=== PATIENT | female | born 1960 | race Caucasian/White ===

== ENCOUNTER 2023-04-22 05:17 | Observation (INO) ==
--- NOTE | 2023-03-28 13:20 | PAT Medication Instructions ---
Medication Instructions Date of Service March 28, 2023 Home Medications Medication Instructions Recorded albuterol sulfate 90 mcg/actuation 2 puff inhalation Q6H PRN 02/20/23 aerosol inhaler shortness of breath or wheezing #54 grams bupropion HCl 300 mg 24 hr tablet, 300 mg PO QAM #90 tabs 03/21/23 extended release (Wellbutrin XL) albuterol sulfate 2.5 mg/3 mL (0.083 %) solution for nebulization 2.5 mg inhalation Q4H PRN amiodarone 200 mg tablet 200 mg PO QAM fexofenadine 180 mg tablet 180 mg PO QAM multivitamin 1 tab PO QAM semaglutide (weight loss) 1 mg/0.5 mL subcutaneous pen injector 2 mg subcut Q7D albuterol sulfate 90 mcg/actuation aerosol inhaler 2 puff inhalation Q6H PRN bupropion HCl 300 mg 24 hr tablet, extended release (Wellbutrin XL) 300 mg PO QAM apixaban 5 mg tablet (Eliquis) 5 mg PO BID hydrochlorothiazide 12.5 mg tablet 12.5 mg PO QAM levothyroxine 50 mcg tablet 50 mcg PO QAM losartan 100 mg tablet 100 mg PO QAM metoprolol succinate 25 mg tablet,extended release 24 hr 25 mg PO QAM montelukast 10 mg tablet 10 mg PO QAM venlafaxine 150 mg capsule,extended release 24 hr 150 mg PO QAM STOP 7 days before surgery semaglutide (weight loss) 1 mg/0.5 mL subcutaneous pen injector 2 mg subcut Q7D ASK your prescriber and surgeon apixaban 5 mg tablet (Eliquis) 5 mg PO BID(in order for spinal or epidural anesthesia, Eliquis needs to be stopped 72 hours/3 days before surgery. Please check if okay with doctor that prescribes this to you) DO NOT take the morning of surgery fexofenadine 180 mg tablet 180 mg PO QAM multivitamin 1 tab PO QAM hydrochlorothiazide 12.5 mg tablet 12.5 mg PO QAM losartan 100 mg tablet 100 mg PO QAM Take morning of surgery With a small sip of water, OTHERWISE NOTHING TO EAT OR DRINK AFTER MIDNIGHT: albuterol sulfate 2.5 mg/3 mL (0.083 %) solution for nebulization 2.5 mg inhalation Q4H PRN(if needed) amiodarone 200 mg tablet 200 mg PO QAM albuterol sulfate 90 mcg/actuation aerosol inhaler 2 puff inhalation Q6H PRN(use if needed; please bring with you to hospital day of surgery if possible) bupropion HCl 300 mg 24 hr tablet, extended release (Wellbutrin XL) 300 mg PO QAM levothyroxine 50 mcg tablet 50 mcg PO QAM metoprolol succinate 25 mg tablet,extended release 24 hr 25 mg PO QAM montelukast 10 mg tablet 10 mg PO QAM venlafaxine 150 mg capsule,extended release 24 hr 150 mg PO QAM Take evening before surgery albuterol sulfate 2.5 mg/3 mL (0.083 %) solution for nebulization 2.5 mg inhalation Q4H PRN(if needed) albuterol sulfate 90 mcg/actuation aerosol inhaler 2 puff inhalation Q6H PRN(if needed) Other Notes If you have any questions please call us at [phone] or [phone] or [phone] or [phone]
--- NOTE | 2023-04-03 11:36 | Anesthesiology Consultation ---
Date of Service April 03, 2023 Assessment & Plan (1) Encounter for pre-operative examination: allergic to perfumes, lotions, scents This was marked on OR sheet and Elena with OR made aware. - cardiology 05/21/22 S: "...pAF/flutter 2014 at pre-op ECG...on amiodarone since 01/2015 was on Xarelto stopped back in 04/2019 due to epistaxis...NICM by echo in 11/2014 EF 30-35% probably tachycardia mediated; normalized by recent echo 08/2015...stable from a cardiac standpoint...follow up 1 year..." - pulmonology 05/15/22 [facility]: "...moderate persistent asthma, morbid obesity...DAVID on CPAP and atrial fibrillation...get spirometry in 6 minutes walk priori to next visit. discontinue Wixela. Continue prn albuterol...follow up in 1 year..." - Outpatient joint assessment: Patient is currently scheduled for inpatient pathway. If re-evaluated and patient/surgeon requests outpatient pathway, patient is not recommended candidate for outpatient joint program from anesthesia standpoint. Patient expresses preference to remain overnight. Chart Review Chart Review: Acceptable Risk for Surgery and Patient seen in Pre Admission Testing Teaching & Discussion Pre-Anesthesia Teaching/Discussion Notes: Instructed NPO after midnight before surgery, except medications with 15 cc of water. Medication instructions provided according to the PAT guidelines. History Surgery Operation Date: 04/22/23 07:00 Proposed Procedures p Left Total Knee Arthroplasty - Cholo Sam, DO Height/Weight Height: 5 ft 6 in Weight: 116.3 kg Allergies Allergy/AdvReac Type Severity Reaction Status Date / Time Iodinated Contrast Media Allergy Hives Verified 03/28/23 08:18 [Iodinated Contrast- Oral and IV Dye] Medications Home Medications Medication Instructions Recorded Confirmed Last Taken albuterol sulfate 2.5 mg/3 mL 2.5 mg inhalation Q4H PRN 07/30/19 03/28/23 Unknown (0.083 %) solution for nebulization Shortness Of Breath amiodarone 200 mg tablet 200 mg PO QAM 07/30/19 03/28/23 Unknown fexofenadine 180 mg tablet 180 mg PO QAM 07/30/19 03/28/23 Unknown multivitamin 1 tab PO QAM 07/30/19 03/28/23 Unknown semaglutide (weight loss) 1 mg/0.5 2 mg subcut Q7D weight loss 07/24/22 03/28/23 Unknown mL subcutaneous pen injector albuterol sulfate 90 mcg/actuation 2 puff inhalation Q6H PRN 02/20/23 03/28/23 Unknown aerosol inhaler shortness of breath or wheezing #54 grams bupropion HCl 300 mg 24 hr tablet, 300 mg PO QAM #90 tabs 03/21/23 03/28/23 Unknown extended release (Wellbutrin XL) apixaban 5 mg tablet (Eliquis) 5 mg PO BID 03/28/23 03/28/23 Unknown hydrochlorothiazide 12.5 mg tablet 12.5 mg PO QAM 03/28/23 03/28/23 Unknown levothyroxine 50 mcg tablet 50 mcg PO QAM 03/28/23 03/28/23 Unknown losartan 100 mg tablet 100 mg PO QAM 03/28/23 03/28/23 Unknown metoprolol succinate 25 mg 25 mg PO QAM 03/28/23 03/28/23 Unknown tablet,extended release 24 hr montelukast 10 mg tablet 10 mg PO QAM 03/28/23 03/28/23 Unknown venlafaxine 150 mg 150 mg PO QAM 03/28/23 03/28/23 Unknown capsule,extended release 24 hr Past Medical History Medical History (Updated 04/03/23 @ 12:23 by Evelia Jasso PA-C) AF (paroxysmal atrial fibrillation) currently on eliquis>f/u dr. declan arreola, [facility] Allergic rhinitis Allergy to perfume asthma exacerbations Asthma controlled, stable per pt; last rescue inhaler use several months ago Atrial flutter, paroxysmal CKD (chronic kidney disease) stage 3, GFR 30-59 ml/min Depression GERD (gastroesophageal reflux disease) controlled, stable per pt Hiatal hernia HTN (hypertension) controlled, stable per pt Hypothyroidism Morbid obesity Nonischemic cardiomyopathy EF 60% on 03/2021 echo Obstructive sleep apnea on CPAP cpap compliant Sinus bradycardia Patient denies h/o stroke, seizures, heart attack, DM, blood clots or blood transfusions. Exercise / Class Metabolic Activity II 4-5 Yardwork/Stairs/Walk up hill (denies chest discomfort or shortness of breath with 1 FOS) Past Family History Family History Father Alcohol abuse AAA (abdominal aortic aneurysm) Bipolar disorder Brother Alcohol abuse Hypertension Drug abuse Sister Alcohol abuse Mother Heart disease Stroke Diabetes Myocardial infarction Aunt Breast cancer Past Surgical History Surgical History History of bladder surgery History of hysterectomy Hx laparoscopic cholecystectomy Hx of Achilles tendon repair 2012-rt. Hx of colonoscopy w/precancerous polyps removed Hx of endoscopic retrograde cholangiopancreatography w/lap bhargav, stent placed and later removed Past Anesthesia History No Hx of Anesthesia Complications and No Family Hx of Anesthesia Complications History of PONV No Hx of PONV and No Hx of Motion Sickness Social History Smoking Status: Never smoker Do You Dip or Chew Tobacco: No Hx Alcohol Use: Yes alcohol intake frequency: other Alcohol Intake Frequency Comment: maybe once every 2 years Hx Substance Use: No substance use type: does not use Review of Systems Patient denies chest pain, shortness of breath, dyspnea on exertion, fever, chills, cough, wheezing, or palpitations. Physical Exam Vital Signs Vitals BP 119/83 P 58 TEMP 97.8 SP02 98% on RA RESP 17 Physical Patient resting comfortably in chair in NAD, alert and oriented, responding appropriately throughout visit Full cervical extension range of motion without pain TMD 3.5 finger breadths Mallampati Score 2 Dentition: several caps/crowns, denies chipped or loose teeth, implants or bridges Lungs: normal respiratory effort. Good air movement, clear throughout to auscultation, no adventitious breath sounds Cardiac: regular rate and rhythm, no murmurs noted Carotid arteries: negative bruit bilat Lab Results Anesthesia Preop Results Results Anesthesia Widget: WBC 4.76 K/ul (4.8-10.8) L 04/03/23 Hgb 13.1 g/dl (12.0-16.0) 04/03/23 Hct 39.5 % (37.0-47.0) 04/03/23 Plt 274 K/uL (130-400) 04/03/23 Na 141 mmol/L (136-145) 04/03/23 K 3.9 mmol/L (3.5-5.1) 04/03/23 Cl 104 mmol/L (98-107) 04/03/23 CO2 32 mmol/L (21-32) 04/03/23 BUN 16 mg/dl (6-23) 04/03/23 Creat 1.03 mg/dl (0.6-1.2) 04/03/23 Glucose Level 83 mg/dl (70-99(Fasting)) 04/03/23 PT 10.9 Seconds (9.0-12.0) 04/03/23 PTT 30.1 Seconds (21.0-31.0) 04/03/23 INR 1.0 (0.9-1.1) 04/03/23 TSH 1.290 uIu/ml (0.300-4.500) 04/03/23 Blood Type O Positive 04/03/23 Antibody Screen NEGATIVE 04/03/23 Testing Electrocardiogram Date: 05/21/22 NSR, rate 60 bpm Chest X-Ray Date: 04/03/23 No acute chest disease Echocardiogram Date: 03/23/21 EF 60% Normal LV wall motion No significant valvular pathology Non-dilated cardiac chambers
[2023-04-22] MEDS ORDERED: LR 500ML BOLUS, THEN 15ML/HR IV SCH (06:00)
[2023-04-22] MEDS ORDERED: ORTHO JOINT MIX INFIL SCH (06:00)
[2023-04-22] MEDS ORDERED: ACETAMINOPHEN 500 MG TAB PO SCH (06:00)
[2023-04-22] MEDS ORDERED: TRANEXAMIC ACID 1,000 MG **IV Pre-op IV SCH (06:00)
[2023-04-22] MEDS ORDERED: FAMOTIDINE 20 MG TAB PO SCH (06:00)
[2023-04-22] MEDS ORDERED: ceFAZolin 2000MG 2,000 MG/15 ML SYR IV SCH (06:00)
[2023-04-22] MEDS ORDERED: dexAMETHasone 4 MG TAB PO SCH (06:00)
[2023-04-22] MEDS ORDERED: GABAPENTIN 600 MG DOSE PO SCH (06:00)
[2023-04-22] MEDS ORDERED: LR 60ML/HR IV SCH (06:00)
[2023-04-22] MEDS ORDERED: TRANEXAMIC ACID 1,000 MG **IV Intra-op IV SCH (06:00)
[2023-04-22] MEDS ORDERED: BUPIVACAINE 0.25% PF 30 ML VIAL ONE (06:14)
[2023-04-22] MEDS ORDERED: BUPIVACAINE 0.5 % 5 MG/1 ML PF 10ML VIAL ONE (06:14)
--- NOTE | 2023-04-22 06:15 | History & Physical Bridge Note ---
Date of Service April 22, 2023 History & Physical Bridge Note I have examined the patient, reviewed the History & Physical and in the interval since the performance of the History & Physical I have noted the following changes of clinical significance: no changes noted
[2023-04-22] MEDS ORDERED: MIDAZOLAM HCL 1 MG/ML 2ML VIAL ONE ×2 (06:37→07:12)
[2023-04-22] MEDS ORDERED: LIDOCAINE 2% 2 ML VIAL/AMP(20MG/ML) INFIL ONE (06:37)
[2023-04-22] MEDS ORDERED: PROPOFOL IV EMULSION 10 MG/ML 20 ML VIAL IV ONE (06:37)
[2023-04-22] MEDS ORDERED: fentaNYL citrate PF 100 MCG/2 ML VIAL ONE (06:37)
[2023-04-22] MEDS ORDERED: ORTHO JOINT ANESTHETIC ONE (06:50)
[2023-04-22] MEDS ORDERED: ePHEDrine sulfate 50 MG/ML AMP IV PRN (07:01)
[2023-04-22] MEDS ORDERED: ONDANSETRON INJ 2 MG/ML 2 ML VIAL IV PRN ×2 (07:01→10:01)
[2023-04-22] MEDS ORDERED: fentaNYL citrate PF 100 MCG/2 ML VIAL IV PRN (07:01)
[2023-04-22] MEDS ORDERED: ATROPINE SULFATE 0.1 MG/ML 10ML SYR IV PRN (07:01)
--- NOTE | 2023-04-22 08:24 | Operative Report ---
PG Post Operative Report Pre & Post Diagnosis Operation Date: 04/22/23 07:00 Pre-Op Diagnosis: Osteoarthritis of Left Knee Postop diagnosis: Osteoarthritis of left knee I identified the patient and participated in the time-out.: Yes Procedure Operation Date: 04/22/23 07:00 Actual Procedures p Left Total Knee Arthroplasty(Left) - Cholo Sam DO Surgeon Cholo Sam DO [employer] Representative Cholo Allen PA-C Estimated Blood Loss 30 Findings Consistent with Post-Op Diagnosis Specimens Left femoral tibial plateau Description of Procedure Implants used: I used a Chidi Persona total knee arthroplasty system with a size 8 standard femur, E tibia, 31 oval patella, and a size 11 medial congruent polyethylene bearing. All components were cemented in place with Biomet cement. Bibi arrived [facility] for the above procedure. She was seen in the preoperative holding area and the operative extremity was identified and signed. She was given a preoperative antibiotic, TXA, a spinal anesthetic and an adductor nerve block. She was taken back to the operating room and laid on the table in supine position. She was given basic sedation. The operative knee was then prepped and draped in sterile fashion. A timeout was done, and the patient and the operative extremity was properly identified. A midline incision was made directly over the patella. Dissection was taken down to the extensor mechanism. A midvastus arthrotomy was used. The medial retinaculum was released and the fat pad was mostly excised. The knee was flexed and the ACL, PCL, and meniscus were removed. A drill was sent down the center of the femoral canal followed by an intramedullary rik. Off that rik a distal femoral cutting block was placed. 9 mm was resected off the distal femur at 5 of valgus. A posterior referencing AP sizing guide was then placed on the distal femur. The femur measured to be a size 8. 2 drill holes were placed in 3 of external rotation. A 4-in-1 cutting block was then impacted into place. Anterior, posterior, and chamfer cuts were then made. The proximal tibia was then exposed. An external tibial alignment guide was placed. A tibial cut guide was then anchored in place and the proximal tibia was then resected. The posterior aspect of the knee was then opened up and any additional meniscus fragments and osteophytes were removed. The tibia measured to be a size E. The tibial plate was then placed in the appropriate rotation and the tibia was drilled and punched. Trial components were then placed. I used a size 11 medial congruent polyethylene insert. The knee was brought through a full range of motion and felt to be stable. The peg holes for the femoral component were then drilled. The patella was then everted and 9 mm was resected off the posterior aspect of the patella. The patella measured to be a size 31 oval. 3 peg holes were then drilled. A trial patella was placed. The knee was once again brought through a full range of motion and felt to be stable. Trial components were then removed. The surrounding soft tissues were injected with 100 cc of an orthopedic pain control cocktail. All components were then cemented into place with Biomet cement. The final polyethylene insert was then snapped into place. Once cement was dry the tourniquet was deflated. Hemo stasis was obtained. The patella tendon was peeling off the tibial tuberosity about 50%. I placed 2 Arthrex knotless fiber tacks in the tuberosity and passed them through the tendon insertion. Through a tension slide technique I was able to tie the tendon back down. The fixation was very secure. A dilute betadyne lavage was then done for 3 minutes. The joint was then irrigated with normal rose ine solution. The midvastus arthrotomy was then closed with #1 Vicryl suture. The skin was closed with 2-0 Vicryl, 3-0V lock suture, and elvia. A soft compressive dressing was placed. She was then transferred to a hospital bed and taken to the postanesthesia care unit in stable condition. She tolerated the procedure well. Cholo Allen PA-C, was present for the entire procedure. He was critical for patient positioning, prepping, draping, retraction exposure, wound closure and application of sterile dressing. I attest to the content of the Intraoperative Record and any orders documented therein. Any exceptions are noted below.
[2023-04-22] MEDS ORDERED: ePHEDrine sulfate 50 MG/5 ML SYR ONE (08:44)
--- NOTE | 2023-04-22 09:25 | XRay Report ---
LEFT KNEE 2 VIEWS History: Left total knee arthroplasty. Degenerative arthritis. Postop. FINDINGS: The patient is status post a left total knee arthroplasty. The hardware is intact. No fract ure or dislocation. Skin elvia are in place. IMPRESSION: Left total knee arthroplasty. No evidence for hardware complication. ACT 112: Negative or not required by law. Electronically signed by: Deep Rivas M.D. 04/22/2023 9:24 AM
[2023-04-22] MEDS ORDERED: bisacodyL 10 MG SUPP PR PRN (10:01)
[2023-04-22] MEDS ORDERED: oxyCODONE HCL IR 5 MG TAB (IMMEDIATE RELEASE) PO PRN (10:01)
[2023-04-22] MEDS ORDERED: METOCLOPRAMIDE HCL INJ 5 MG/ML 2 ML VIAL IV PRN (10:01)
[2023-04-22] MEDS ORDERED: ALBUTEROL HFA 8 GM INHALER INH PRN (10:01)
[2023-04-22] MEDS ORDERED: NALOXONE HCL 0.4 MG/1 ML VIAL/CARP IV PRN (10:01)
[2023-04-22] MEDS ORDERED: HYDROmorphone INJ 0.5 MG/0.5 ML SYR IV PRN (10:01)
[2023-04-22] MEDS ORDERED: ALBUTEROL 0.083% NEBU SOLN 3 ML VIAL INH PRN (10:01)
[2023-04-22] MEDS ORDERED: MAGNESIUM HYDROXIDE SUSP 30 ML UDC PO PRN (10:01)
[2023-04-22] MEDS: FEXOFENADINE HCL 180 MG TAB PO SCH (10:43)
[2023-04-22] MEDS: DOCUSATE SODIUM 100 MG CAP PO SCH ×2 (10:43→20:02)
[2023-04-22] MEDS: SODIUM CHLORIDE 0.9% 1,000 ML IV SCH ×2 (10:43→20:22)
[2023-04-22] MEDS: LOSARTAN POTASSIUM 50 MG TAB PO SCH (10:44)
[2023-04-22] MEDS: hydroCHLOROthiazide 25 MG TAB PO SCH (10:44)
[2023-04-22] MEDS: MULTIVITAMIN TAB PO SCH (10:45)
[2023-04-22] MEDS: VENLAFAXINE HCL XR 150 MG CAPXR PO SCH (10:51)
[2023-04-22] MEDS: KETOROLAC 30 MG/ML VIAL IV SCH ×3 (10:52→22:29)
[2023-04-22] MEDS: ACETAMINOPHEN 500 MG TAB PO SCH ×2 (13:59→22:29)
[2023-04-22] MEDS: ceFAZolin 2000MG 2,000 MG/15 ML SYR IV SCH ×2 (14:00→22:29)
--- NOTE | 2023-04-22 14:19 | Anesthesiology Progress Note ---
Date of Service April 22, 2023 Anesthesia Post Procedure Vital Signs Vital Signs: Temp Pulse Pulse Resp BP Pulse Ox O2 Del Method 04/22/23 13:11 37.1 C 72 16 154/73 H 98 Room Air 04/22/23 12:09 37.1 C 67 16 124/74 98 Room Air 04/22/23 11:11 36.6 C 65 18 115/60 99 Room Air 04/22/23 10:46 36.4 C L 58 L 18 116/75 95 Room Air 04/22/23 10:10 36.4 C L 56 L 18 102/67 98 Room Air 04/22/23 09:45 36.2 C L 56 L 16 115/63 96 Room Air 04/22/23 09:35 58 L 14 106/75 95 Room Air 04/22/23 09:05 70 16 111/63 97 Room Air 04/22/23 09:25 58 L 19 111/62 96 Room Air 04/22/23 09:15 60 15 109/63 98 Room Air 04/22/23 08:55 58 L 14 99/52 L 100 Oxymask 04/22/23 08:49 36.2 C L 58 L 15 109/58 L 100 Oxymask 04/22/23 05:49 36.7 C 61 20 129/69 100 Room Air O2 Flow Rate 04/22/23 13:11 04/22/23 12:09 04/22/23 11:11 04/22/23 10:46 04/22/23 10:10 04/22/23 09:45 04/22/23 09:35 04/22/23 09:05 04/22/23 09:25 04/22/23 09:15 04/22/23 08:55 4 04/22/23 08:49 6 04/22/23 05:49 Transfer of Care Handoff Completed per policy Notes Mental Status: alert / awake / arousable and participated in evaluation Patient Amnestic to Procedure: Yes Nausea / Vomiting: adequately controlled Pain: adequately controlled Airway Patency, RR, SpO2: stable & adequate BP & HR: stable & adequate Hydration State: stable & adequate Neuraxial Anesthesia: was administered and sensory block is resolving Anesthetic Complications: no major complications apparent and Pt Satisfied with anesthetic care
[2023-04-22] MEDS ORDERED: SENNA 8.6 MG TAB PO SCH (21:00)
[2023-04-23] MEDS: ACETAMINOPHEN 500 MG TAB PO SCH (05:48)
[2023-04-23] MEDS: KETOROLAC 30 MG/ML VIAL IV SCH (05:48)
[2023-04-23] MEDS ORDERED: LEVOTHYROXINE SODIUM 50 MCG TABLET PO SCH (06:30)
--- NOTE | 2023-04-23 07:12 | Discharge Summary ---
Date of Service April 23, 2023 Principal Diagnosis Same as "Discharge Diagnosis" noted below under Discharge Instructions. Discharge Exam On physical examination of left knee, the dressing is clean and dry. His leg is out in full extension. She has active dorsiflexion plantarflexion of her left ankle.. Discharge Data Procedures Performed Operation Date: 04/22/23 07:00 Actual Procedures p Left Total Knee Arthroplasty(Left) - Cholo Sam DO Ordered Studies 04/22/23 05:00 US - OR guided needle placemen Routine Hospital Course (1) Status post left knee replacement: On April 22, 2023 Bibi arrived at [facility] and underwent a left knee replacement without complication. Postoperatively she was started on Eliquis for DVT prophylaxis and transferred to the general orthopedic floor. Her hospital course was uneventful. On postop day #1, her vital signs were stable and her pain was well controlled. She was able to participate well with physical therapy doing ambulation and range of motion exercises. She was then discharged home. She will follow with orthopedics in 2 weeks. PG Care Time/CCT Total # of Minutes Spent Total Time Spent with Patient: Total time spent is greater than 50% in coordination of care (as documented) at patient's floor/unit and/or counseling patient: Discharge Plan Discharge Items Patient Disposition: Home - Home Health Services Reason For Visit: DKD Knee Left Discharge Diagnosis: Left knee replacement Activity: Per Instructions section Non-emergency contact: Surgeon Call non-emergency contact if: your wound has increased redness and your wound has increased drainage Follow-up/Referrals: Joseph Grace DO [Primary Care Provider] - Diet: Regular Addtl Attending Provider Instructions: Activity and Therapy Recommendations: * If you are using [facility] then therapy will be provided at your home until they feel you have accomplished all of your goals. * If you are using [facility] then Physical Therapy will be provided until they feel you are ready to start Outpatient Physical Therapy. * If you are not using home therapy then Outpatient Physical Therapy should start about 3-5 days from your day of surgery. Therapy will last about 6-10 weeks * It is important not to put a pillow under your knee when you are relaxing or sleeping. It is just as important to make sure you are getting your knee perfectly straight as it is to regain your knee bend. * You were shown a series of exercises in the hospital. Do these exercises three times each day including the exercises you were shown in physical therapy. * Get up and walk several times each day. For the first four weeks, try not to stand or walk for more than one hour at a time. If you do stand or walk for more than one hour, you will not hurt anything, but your leg will likely swell. * As you feel comfortable, you may change from the walker or crutches to a cane and then to independent walking. Medications: * Narcotic You will likely be sent home from the hospital with a prescription for the narcotic pain medication that worked best throughout your stay. * Eliquis continue your Eliquis as instructed. * Other medications may be prescribed for specific circumstances. If you have any questions, please call the office at . * Resume previous home medications unless otherwise instructed TEDs/Elastic Stockings: The white elastic stockings help limit swelling and prevent blood clots from forming in your legs.~ The more you wear them, the more they work. Wear them for six weeks. Dressing Care: The dressing can be changed after physical therapy on postop day #1. Daily dry dressing changes for a few days, especially if the incision is still draining some. If the incision is not draining then you may leave the elvia open to air. If there is a little bit of drainage or if the elvia are getting stuck on your clothing then cover the incision with a dry dressing. The elvia will be removed at your 2 week follow-up appointment. Showering: You may shower 5 days from the day of surgery as long as the incision is no longer draining. You may shower with the elvia exposed. Let soapy water run over the elvia and pat them dry. Do not scrub or soak the incision. Things To Watch For: * Drainage from the incision site that occurs more than one week after your surgery. * Increased redness at the incision site. * Fever above 102 degrees Fahrenheit. * Unusual chest pain or shortness of breath. * Call [facility] at with any of the above problems Follow-Up Visit: Follow-up with Dr. Sam's PA (Cholo Allen) 2-3 weeks after your day of surgery. He will remove your elvia and answer any questions. If you have any additional questions or concerns, Dr Sam is usually in the office at the same time and will be available An appointment was probably scheduled when you signed-up for surgery in the office. If you have any questions call Office Instructions: More detailed instructions as well as Frequently Asked Questions were provided in a folder by our office when you signed-up for surgery. Please review these instructions when you get home. If you have any further questions or concerns, please feel free to call the office at [phone] Pending Studies at Discharge: No Stand-Alone Forms: My [facility], Smoking Cessation Medications and DC Order Prescriptions: New oxycodone 5 mg Tablet 5 mg PO Q4H PRN (Reason: pain) Qty: 30 0RF Continued albuterol sulfate 90 mcg/actuation HFA aerosol inhaler 2 puff INH Q6H PRN (Reason: shortness of breath or wheezing) Qty: 54 1RF bupropion HCl [Wellbutrin XL] 300 mg tablet extended release 24 hr 300 mg PO QAM Qty: 90 0RF albuterol sulfate 2.5 mg /3 mL (0.083 %) solution for nebulization 2.5 mg INH Q4H PRN (Reason: Shortness Of Breath) Patient Comments: has not used for a very long time. amiodarone 200 mg tablet 200 mg PO QAM fexofenadine 180 mg tablet 180 mg PO QAM multivitamin tablet 1 tab PO QAM semaglutide (weight loss) 1 mg/0.5 mL pen injector 2 mg subcut Q7D Patient Comments: Takes Semaglutide Fridays- last dose will be 04/12/23, surgery 04/22/23 (aware to hold 7 days before surgery) Eliquis 5 mg Tablet 5 mg PO BID venlafaxine 150 mg capsule,extended release 24hr 150 mg PO QAM levothyroxine 50 mcg tablet 50 mcg PO QAM montelukast 10 mg tablet 10 mg PO QAM metoprolol succinate 25 mg tablet extended release 24 hr 25 mg PO QAM losartan 100 mg tablet 100 mg PO QAM hydrochlorothiazide 12.5 mg tablet 12.5 mg PO QAM Admission Data Admit Date/Time: 04/22/23 08:49 Attending Provider: Cholo Sam Admit Provider: Cholo Sam Primary Care Provider: Joseph Grace
--- NOTE | 2023-04-23 07:12 | Orthopedic Progress Note ---
Date of Service April 23, 2023 Assessment & Plan (1) Status post left knee replacement: Overall she is doing very well. She is not having much pain in the left knee. She will be seen by physical therapy today for ambulation and range of motion exercises. She is on Eliquis for DVT prophylaxis. She can be discharged home later today. She will follow-up with orthopedics in 2 weeks. Sergio Mtz was seen and examined at bedside this morning. Overall she is doing very well. She is not having much pain in the left knee. She has been up and ambulating to the bathroom. She has no complaints.. Review of Systems All systems reviewed & are unremarkable except as noted in HPI & below. Physical Exam On physical examination of left knee, the dressing is clean and dry. His leg is out in full extension. She has active dorsiflexion plantarflexion of her left ankle.. Results & Data Results & Data Laboratory Results . Diagnostic Findings Postoperative x-rays of the left knee show the prosthesis to be in anatomic alignment without any evidence of fracture, dislocation, or loosening. PG Care Time/CCT Total # of Minutes Spent Total Time Spent with Patient: Total time spent is greater than 50% in coordination of care (as documented) at patient's floor/unit and/or counseling patient: Coding Level of Care Code 68584 Post Operative Follow-Up Diagnoses Status post left knee replacement Z96.652
[2023-04-23] MEDS: FEXOFENADINE HCL 180 MG TAB PO SCH (07:14)
[2023-04-23] MEDS: MULTIVITAMIN TAB PO SCH (07:15)
[2023-04-23] MEDS: DOCUSATE SODIUM 100 MG CAP PO SCH (07:15)
[2023-04-23] MEDS: VENLAFAXINE HCL XR 150 MG CAPXR PO SCH (07:16)
[2023-04-23] MEDS: LOSARTAN POTASSIUM 50 MG TAB PO SCH (07:16)
[2023-04-23] MEDS: hydroCHLOROthiazide 25 MG TAB PO SCH (07:17)
[2023-04-23] MEDS ORDERED: dexAMETHasone 4 MG TAB PO SCH (08:00)
[2023-04-23] MEDS ORDERED: APIXABAN 5 MG TABLET PO SCH (08:00)
[2023-04-23] MEDS ORDERED: METOPROLOL SUCC 25MG EXT REL TAB PO SCH (09:00)
[2023-04-23] MEDS ORDERED: buPROPion XL 300 MG TABCR PO SCH (09:00)
[2023-04-23] MEDS ORDERED: AMIODARONE 200 MG TAB PO SCH (09:00)
[2023-04-23] MEDS ORDERED: MONTELUKAST SODIUM 10 MG TABLET PO SCH (09:00)
== END 2023-04-23 11:45 | disposition home health service (06) ==
LOC: ASU 05:17 → 3E 05:17

== ENCOUNTER 2023-07-12 08:35 | Observation (INO) ==
--- NOTE | 2023-07-01 10:24 | Anesthesiology Consultation ---
Date of Service July 01, 2023 Assessment & Plan (1) Encounter for pre-operative examination: Plan - Ozempic instructions: Patient instructed naomi POSEY RN to stop 7 days prior to surgery. - cardiology office visit 05/20/23 [facility]: "...QTc is good today and she is tolerating amio...EP f/u 1 in year..." - s/p left TKA 04/22/23 SAB at L4-L5 1 attempt + PNB. - Outpatient joint assessment: Patient is currently scheduled for inpatient pathway. If re-evaluated and patient/surgeon requests outpatient pathway, patient is not recommended candidate for outpatient joint program from anesthesia standpoint. Patient expresses preference to remain overnight. - Per elevator mechanic apprentice on 07/01/2023: No known infectious disease contacts, current infectious disease symptoms in past 10 days or COVID positive test result in the past 90 days. Chart Review Chart Review: Patient NOT seen in Pre Admission Testing History Surgery Operation Date: 07/12/23 09:10 Proposed Procedures p Right Total Knee Arthroplasty - Cholo Sam, Height/Weight Height: 5 ft 6 in Weight: 113.398 kg Allergies Allergy/AdvReac Type Severity Reaction Status Date / Time Iodinated Contrast Media Allergy Intermediate Hives Verified 07/01/23 09:48 [Iodinated Contrast- Oral and IV Dye] Medications Home Medications Medication Instructions Recorded Confirmed Last Taken albuterol sulfate 2.5 mg/3 mL 2.5 mg inhalation Q4H PRN 07/30/19 07/01/23 12/21/19 (0.083 %) solution for nebulization Shortness Of Breath amiodarone 200 mg tablet 200 mg PO QAM 07/30/19 07/01/23 04/22/23 04:00 fexofenadine 180 mg tablet 180 mg PO QAM 07/30/19 07/01/23 04/21/23 08:00 multivitamin 1 tab PO QAM 07/30/19 07/01/23 04/21/23 08:00 semaglutide (weight loss) 1 mg/0.5 2 mg subcut Q7D weight loss 07/24/22 07/01/23 04/12/23 mL subcutaneous pen injector albuterol sulfate 90 mcg/actuation 2 puff inhalation Q6H PRN 02/20/23 07/01/23 02/12/23 aerosol inhaler shortness of breath or wheezing #54 grams bupropion HCl 300 mg 24 hr tablet, 300 mg PO QAM #90 tabs 03/21/23 07/01/23 04/22/23 04:00 extended release (Wellbutrin XL) apixaban 5 mg tablet (Eliquis) 5 mg PO BID 03/28/23 07/01/23 04/18/23 hydrochlorothiazide 12.5 mg tablet 12.5 mg PO QAM 03/28/23 07/01/23 04/21/23 08:00 levothyroxine 50 mcg tablet 50 mcg PO QAM 03/28/23 07/01/23 04/21/23 23:00 metoprolol succinate 25 mg 25 mg PO QAM 03/28/23 07/01/23 04/22/23 04:00 tablet,extended release 24 hr montelukast 10 mg tablet 10 mg PO QAM 03/28/23 07/01/23 04/22/23 04:00 venlafaxine 150 mg 150 mg PO QAM 03/28/23 07/01/23 04/21/23 08:00 capsule,extended release 24 hr losartan 100 mg tablet 100 mg PO QAM #90 tabs 06/10/23 07/01/23 Unknown Past Medical History Medical History CKD (chronic kidney disease) stage 3, GFR 30-59 ml/min Hiatal hernia GERD (gastroesophageal reflux disease) Allergy to perfume asthma exacerbations Nonischemic cardiomyopathy Hypothyroidism AF (paroxysmal atrial fibrillation) currently on eliquis>f/u dr. declan arreola Allergic rhinitis Asthma controlled, stable per pt; last rescue inhaler use several months ago Atrial flutter, paroxysmal Depression HTN (hypertension) controlled, stable per pt Obstructive sleep apnea on CPAP has not been using cpap for over 1 month>lost 90lbs since sleep study Sinus bradycardia Past Family History Family History (Updated 07/01/23 @ 09:55 by Roma Dixon RN) Father Alcohol abuse AAA (abdominal aortic aneurysm) Bipolar disorder Brother Drug abuse Alcohol abuse Hypertension Sister Alcohol abuse Mother Diabetes Heart disease Myocardial infarction Stroke Aunt Breast cancer Other No family history of adverse response to anesthesia Past Surgical History Surgical History (Updated 07/01/23 @ 09:55 by Roma Dixon RN) [place] teeth removed Hx of total knee replacement L knee. 04/22/23 Hx laparoscopic cholecystectomy Hx of endoscopic retrograde cholangiopancreatography w/lap bhargav, stent placed and later removed Hx of colonoscopy w/precancerous polyps removed Hx of Achilles tendon repair 2013-rt. History of hysterectomy History of bladder surgery Social History Smoking Status: Never smoker Do You Dip or Chew Tobacco: No Hx Alcohol Use: Yes alcohol intake frequency: holidays/special occasions only Hx Substance Use: No substance use type: does not use Lab Results Anesthesia Preop Results Results Anesthesia Widget: WBC 5.02 K/ul (4.8-10.8) 06/13/23 Hgb 13.6 g/dl (12.0-16.0) 06/13/23 Hct 41.3 % (37.0-47.0) 06/13/23 Plt 335 K/uL (130-400) 06/13/23 Na 140 mmol/L (136-145) 06/13/23 K 4.2 mmol/L (3.5-5.1) 06/13/23 Cl 101 mmol/L (98-107) 06/13/23 CO2 32 mmol/L (21-32) 06/13/23 BUN 16 mg/dl (6-23) 06/13/23 Creat 1.06 mg/dl (0.6-1.2) 06/13/23 Glucose Level 89 mg/dl (70-99(Fasting)) 06/13/23 PT 10.6 Seconds (9.0-12.0) 06/13/23 PTT 33.3 Seconds (21.0-31.0) H 06/13/23 INR 1.0 (0.9-1.1) 06/13/23 TSH 1.872 uIu/ml (0.300-4.500) 06/13/23 Blood Type O Positive 06/13/23 Antibody Screen NEGATIVE 06/13/23 Testing Electrocardiogram Date: 05/20/23 NSR, rate [address] abnormality Chest X-Ray Date: 04/03/23 No acute chest disease Echocardiogram Date: 03/23/21 EF 60% Normal LV wall motion No significant valvular pathology Non-dilated cardiac chambers
--- NOTE | 2023-07-11 06:38 | History & Physical Report ---
Date of Service July 11, 2023 Assessment & Plan (1) Osteoarthritis of right knee: We will proceed with a right total knee arthroplasty. Postoperatively she will be started on Eliquis for DVT prophylaxis and kept overnight in the hospital for postop medical management. She plans to go to outpatient physical therapy at [facility] upon discharge. History of Present Illness Chief Complaint: Osteoarthritis of the right knee. Primary Care Provider: Joseph GraceDO Mtz is a pleasant 63-year-old female who is been doing with chronic increasing right knee pain. X-rays and clinical examination have been diagnostic for advanced osteoarthritis of the right knee. After failed conservative treatment, she has elected proceed with a right total knee arthrop lasty. I did a left knee replacement on her in April 2023 and she is done very well with that.. Allergies Allergy/AdvReac Type Severity Reaction Status Date / Time Iodinated Contrast Media Allergy Intermediate Hives Verified 07/01/23 09:48 [Iodinated Contrast- Oral and IV Dye] Home Medications Medication Instructions Recorded Confirmed Type albuterol sulfate 2.5 mg/3 mL 2.5 mg inhalation Q4H PRN 07/30/19 07/01/23 History (0.083 %) solution for nebulization Shortness Of Breath amiodarone 200 mg tablet 200 mg PO QAM 07/30/19 07/01/23 History fexofenadine 180 mg tablet 180 mg PO QAM 07/30/19 07/01/23 History multivitamin 1 tab PO QAM 07/30/19 07/01/23 History semaglutide (weight loss) 1 mg/0.5 2 mg subcut Q7D weight loss 07/24/22 07/01/23 History mL subcutaneous pen injector albuterol sulfate 90 mcg/actuation 2 puff inhalation Q6H PRN 02/20/23 07/01/23 Rx aerosol inhaler shortness of breath or wheezing #54 grams apixaban 5 mg tablet (Eliquis) 5 mg PO BID 03/28/23 07/01/23 History hydrochlorothiazide 12.5 mg tablet 12.5 mg PO QAM 03/28/23 07/01/23 History levothyroxine 50 mcg tablet 50 mcg PO QAM 03/28/23 07/01/23 History metoprolol succinate 25 mg 25 mg PO QAM 03/28/23 07/01/23 History tablet,extended release 24 hr montelukast 10 mg tablet 10 mg PO QAM 03/28/23 07/01/23 History losartan 100 mg tablet 100 mg PO QAM #90 tabs 06/10/23 07/01/23 Rx bupropion HCl 300 mg 24 hr tablet, 300 mg PO QAM #90 tabs 07/09/23 Rx extended release (Wellbutrin XL) venlafaxine 150 mg 150 mg PO QAM #90 caps 07/09/23 Rx capsule,extended release 24 hr Past Med/Surg History Medical History CKD (chronic kidney disease) stage 3, GFR 30-59 ml/min Hiatal hernia GERD (gastroesophageal reflux disease) Allergy to perfume asthma exacerbations Nonischemic cardiomyopathy Hypothyroidism AF (paroxysmal atrial fibrillation) currently on eliquis>f/u dr. declan arreola Allergic rhinitis Asthma controlled, stable per pt; last rescue inhaler use several months ago Atrial flutter, paroxysmal Depression HTN (hypertension) controlled, stable per pt Obstructive sleep apnea on CPAP has not been using cpap for over 1 month>lost 90lbs since sleep study Sinus bradycardia Surgical History [place] teeth removed Hx of total knee replacement L knee. 04/22/23 Hx laparoscopic cholecystectomy Hx of endoscopic retrograde cholangiopancreatography w/lap bhargav, stent placed and later removed Hx of colonoscopy w/precancerous polyps removed Hx of Achilles tendon repair 2012-rt. History of hysterectomy History of bladder surgery Family History Father Alcohol abuse AAA (abdominal aortic aneurysm) Bipolar disorder Brother Drug abuse Alcohol abuse Hypertension Sister Alcohol abuse Mother Diabetes Heart disease Myocardial infarction Stroke Aunt Breast cancer Other No family history of adverse response to anesthesia Social History Smoking Status: Never smoker Second Hand Exposure: Yes (hx as child); Do You Dip or Chew Tobacco: No; Hx Alcohol Use: Yes Hx Substance Use: No Preferred Language: Spanish Communication Ability: Effective Container Packer Operator Required: No Beliefs That Will Affect Care: None marital status: Current Living Situation: Spouse Current Living Situation Comment: current occupational status: retired and disabled Feels Safe at Home: Yes Safety Concerns: Feels Safe At This Time Dental Care, Regularly: Yes Physical Activity Frequency: Does not Exercise Seatbelt Use: always Sunscreen Use: Yes Assistive Devices: Glasses and Walker Review of Systems All systems reviewed & are unremarkable except as noted in HPI & below. Physical Exam On physical examination the right knee, she has slight varus deformity. She has range of motion from 5 to 115 degrees. No gross instability. Pain over the distal femoral condyles.. Constitutional WD/WN, vitals as above Eyes PERRL, conjunctivae normal, anicteric sclerae ENMT external ear and nose normal, oropharynx normal Neck trachea midline, no thyromegaly Respiratory normal respiratory effort Cardiovascular RRR, no murmur, no edema Gastrointestinal (Abdomen) normal bowel sounds, soft, nontender, no hepatosplenomegaly Psychiatric A+Ox3, euthymic affect Results & Data Results & Data Laboratory Results . Diagnostic Findings X-rays of the right knee show advanced osteoarthritis with joint space narrowing, osteophyte formation, and [id number] tubulation.. PG Care Time/CCT Total # of Minutes Spent Total Time Spent with Patient: Total time spent is greater than 50% in coordination of care (as documented) at patient's floor/unit and/or counseling patient: Coding Level of Care Code None Diagnoses Osteoarthritis of right knee M17.11
[~2023-07-12 08:35] MED LIST: ACETAMINOPHEN 500 MG TAB PO SCH; BUPIVACAINE 0.25% PF 30 ML VIAL ONE; BUPIVACAINE 0.5 % 5 MG/1 ML PF 10ML VIAL ONE; FAMOTIDINE 20 MG TAB PO SCH; GABAPENTIN 600 MG DOSE PO SCH; LR 500ML BOLUS, THEN 15ML/HR IV SCH; LR 60ML/HR IV SCH; MIDAZOLAM HCL 1 MG/ML 2ML VIAL ONE; ORTHO JOINT MIX INFIL SCH; TRANEXAMIC ACID 1,000 MG **IV Intra-op IV SCH; TRANEXAMIC ACID 1,000 MG **IV Pre-op IV SCH; ceFAZolin 2000MG 2,000 MG/15 ML SYR IV SCH; dexAMETHasone 4 MG TAB PO SCH
--- NOTE | 2023-07-12 09:14 | History & Physical Bridge Note ---
Date of Service July 12, 2023 History & Physical Bridge Note I have examined the patient, reviewed the History & Physical and in the interval since the performance of the History & Physical I have noted the following changes of clinical significance: no changes noted
[2023-07-12] MEDS ORDERED: ORTHO JOINT ANESTHETIC ONE (09:44)
[2023-07-12] MEDS ORDERED: fentaNYL citrate PF 100 MCG/2 ML VIAL IV PRN (09:49)
[2023-07-12] MEDS ORDERED: ePHEDrine sulfate 50 MG/ML AMP IV PRN (09:49)
[2023-07-12] MEDS ORDERED: ATROPINE SULFATE 0.1 MG/ML 10ML SYR IV PRN (09:49)
[2023-07-12] MEDS ORDERED: ONDANSETRON INJ 2 MG/ML 2 ML VIAL IV PRN ×2 (09:49→14:32)
[2023-07-12] MEDS ORDERED: ONDANSETRON INJ 2 MG/ML 2 ML VIAL ONE (10:39)
[2023-07-12] MEDS ORDERED: PROPOFOL IV EMULSION 10 MG/ML 20 ML VIAL IV ONE ×3 (10:39→11:47)
[2023-07-12] MEDS ORDERED: GLYCOPYRROLATE 0.2 MG/ML VIAL ONE (11:09)
[2023-07-12] MEDS ORDERED: ePHEDrine sulfate 50 MG/5 ML SYR ONE (11:09)
[2023-07-12] MEDS ORDERED: MIDAZOLAM HCL 1 MG/ML 2ML VIAL ONE (11:11)
--- NOTE | 2023-07-12 12:02 | Operative Report ---
PG Post Operative Report Pre & Post Diagnosis Operation Date: 07/12/23 10:00 Pre-Op Diagnosis: Degenerative Joint Disease Right Knee Post-Op Diagnosis: Degenerative Joint Disease Right Knee I identified the patient and participated in the time-out.: Yes Procedure Operation Date: 07/12/23 10:00 Actual Procedures p Right Total Knee Arthroplasty(Right) - Cholo Sam DO Surgeon Cholo Sam DO Land Reclamation Specialist Cholo Allen PA-C, Xander Tamayo PA-C Estimated Blood Loss 30 Findings Consistent with Post-Op Diagnosis Specimens Right femoral and tibial bone Description of Procedure Implants used: I used a Chidi Persona total knee arthroplasty system with a size 8 narrow femur, E tibia, 31 oval patella, and a size 11 medial congruent polyethylene bearing. All components were cemented in place with Biomet cement. Bibi arrived [facility] for the above procedure. She was seen in the preoperative holding area and the operative extremity was identified and signed. She was given a preoperative antibiotic, TXA, a spinal anesthetic and an adductor nerve block. She was taken back to the operating room and laid on the table in supine position. She was given basic sedation. The operative knee was then prepped and draped in sterile fashion. A timeout was done, and the patient and the operative extremity was properly identified. A midline incision was made directly over the patella. Dissection was taken down to the extensor mechanism. A midvastus arthrotomy was used. The medial retinaculum was released and the fat pad was mostly excised. The knee was flexed and the ACL, PCL, and meniscus were removed. A drill was sent down the center of the femoral canal followed by an intramedul cassy rik. Off that rik a distal femoral cutting block was placed. 9 mm was resected off the distal femur at 5 of valgus. A posterior referencing AP sizing guide was then placed on the distal femur. The femur measured to be a size 8. 2 drill holes were placed in 3 of external rotation. A 4-in-1 cutting block was then impacted into place. Anterior, posterior, and chamfer cuts were then made. The proximal tibia was then exposed. An external tibial alignment guide was placed. A tibial cut guide was then anchored in place and the proximal tibia was then resected. The posterior aspect of the knee was then opened up and any additional meniscus fragments and osteophytes were removed. The tibia measured to be a size E. The tibial plate was then placed in the appropriate rotation and the tibia was drilled and punched. Trial components were then placed. I used a size 11 medial congruent polyethylene insert. The knee was brought through a full range of motion and felt to be stable. The peg holes for the femoral component were then drilled. The patella was then everted and 9 mm was resected off the posterior aspect of the patella. The patella measured to be a size 31 oval. 3 peg holes were then drilled. A trial patella was placed. The knee was once again brought through a full range of motion and felt to be stable. Trial components were then removed. The surrounding soft tissues were injected with 100 cc of an orthopedic pain control cocktail. All components were then cemented into place with Biomet cement. The final polyethylene insert was then snapped into place. Once cement was dry the tourniquet was deflated. Hemostasis was obtained. A dilute betadyne lavage was then done for 3 minutes. The joint was then irrigated with normal saline solution. The midvastus arthrotomy was then closed with #1 Vicryl suture. The skin was closed with 2-0 Vicryl, 3-0V lock suture, and elvia. A soft compressive dressing was placed. She was then transferred to a hospital bed and taken to the postanesthesia care unit in stable condition. She tolerated the procedure well. Cholo Allen PA-C, and Xander Tamayo PA-C were present for the entire procedure. They were critical for patient positioning, prepping, draping, retraction exposure, wound closure and application of sterile dressing. I attest to the content of the Intraoperative Record and any orders documented therein. Any exceptions are noted below.
--- NOTE | 2023-07-12 12:44 | XRay Report ---
TWO VIEWS RIGHT KNEE CLINICAL HISTORY: Postoperative examination. FINDINGS: AP and crosstable lateral portable views of the right knee are obtained. A right knee arthr oplasty is in near anatomic alignment. There has been undersurface remodeling of the patella. No acut e fracture is seen. There are expected postoperative changes around the knee including skin clips, so ft tissue edema, and subcutaneous gas. IMPRESSION: Expected postoperative changes status post right knee arthroplasty. No acute fracture is seen. ACT 112: Negative or not required by law. Electronically signed by: Young Casarez M.D. 07/12/2023 12:43 PM
[2023-07-12] MEDS ORDERED: MAGNESIUM HYDROXIDE SUSP 30 ML UDC PO PRN (14:32)
[2023-07-12] MEDS ORDERED: METOCLOPRAMIDE HCL INJ 5 MG/ML 2 ML VIAL IV PRN (14:32)
[2023-07-12] MEDS ORDERED: bisacodyL 10 MG SUPP PR PRN (14:32)
[2023-07-12] MEDS ORDERED: ALBUTEROL 0.083% NEBU SOLN 3 ML VIAL INH PRN (14:32)
[2023-07-12] MEDS ORDERED: NALOXONE HCL 0.4 MG/1 ML VIAL/CARP IV PRN (14:32)
[2023-07-12] MEDS ORDERED: oxyCODONE HCL IR 5 MG TAB (IMMEDIATE RELEASE) PO PRN (14:32)
[2023-07-12] MEDS ORDERED: ALBUTEROL HFA 8 GM INHALER INH PRN (14:32)
[2023-07-12] MEDS ORDERED: HYDROmorphone INJ 0.5 MG/0.5 ML SYR IV PRN (14:32)
--- NOTE | 2023-07-12 14:42 | Anesthesiology Progress Note ---
Date of Service July 12, 2023 Anesthesia Post Procedure Vital Signs Vital Signs: Temp Pulse Pulse Resp BP Pulse Ox O2 Del Method 07/12/23 14:00 58 L 12 118/82 98 Room Air 07/12/23 13:45 55 L 16 118/66 100 Nasal Cannula 07/12/23 13:30 54 L 15 120/64 100 Room Air 07/12/23 13:15 55 L 20 118/63 98 Room Air 07/12/23 13:00 36.4 C L 60 17 121/60 97 Room Air 07/12/23 12:50 61 23 104/70 100 Room Air 07/12/23 12:40 62 15 110/68 100 Room Air 07/12/23 12:30 67 15 111/65 100 Oxymask 07/12/23 12:20 36.2 C L 67 13 93/52 L 97 Oxymask 07/12/23 09:11 36.8 C 63 20 154/78 H 97 Room Air O2 Flow Rate 07/12/23 14:00 2 07/12/23 13:45 2 07/12/23 13:30 07/12/23 13:15 07/12/23 13:00 07/12/23 12:50 07/12/23 12:40 07/12/23 12:30 3 07/12/23 12:20 6 07/12/23 09:11 Transfer of Care Handoff Completed per policy Notes Mental Status: alert / awake / arousable Patient Amnestic to Procedure: Yes Nausea / Vomiting: adequately controlled Pain: adequately controlled Airway Patency, RR, SpO2: stable & adequate BP & HR: stable & adequate Hydration State: stable & adequate Neuraxial Anesthesia: was administered and sensory block is resolving Anesthetic Complications: no major complications apparent and Pt Satisfied with anesthetic care
[2023-07-12] MEDS: SODIUM CHLORIDE 0.9% 1,000 ML IV SCH (15:18)
[2023-07-12] MEDS: KETOROLAC 30 MG/ML VIAL IV SCH ×2 (15:19→20:12)
[2023-07-12] MEDS: ACETAMINOPHEN 500 MG TAB PO SCH ×2 (15:19→21:30)
[2023-07-12] MEDS: ceFAZolin 2000MG 2,000 MG/15 ML SYR IV SCH (18:16)
[2023-07-12] MEDS: DOCUSATE SODIUM 100 MG CAP PO SCH (20:12)
[2023-07-12] MEDS ORDERED: SENNA 8.6 MG TAB PO SCH (21:00)
[2023-07-13 00:01] VITALS: RESP 18
[2023-07-13] MEDS: SODIUM CHLORIDE 0.9% 1,000 ML IV SCH (00:45)
[2023-07-13] MEDS: ceFAZolin 2000MG 2,000 MG/15 ML SYR IV SCH (02:28)
[2023-07-13] MEDS: KETOROLAC 30 MG/ML VIAL IV SCH ×2 (02:29→09:15)
[2023-07-13] MEDS: ACETAMINOPHEN 500 MG TAB PO SCH (05:50)
[2023-07-13] MEDS ORDERED: LEVOTHYROXINE SODIUM 50 MCG TABLET PO SCH (06:30)
[2023-07-13 07:18] VITALS: PULSE 60; TEMP 97.7; O2SAT 95
[2023-07-13] MEDS ORDERED: dexAMETHasone 4 MG TAB PO SCH (08:00)
--- NOTE | 2023-07-13 08:39 | Orthopedic Progress Note ---
Date of Service July 13, 2023 Assessment & Plan (1) Status post right knee replacement: Overall she is doing very well. She is not in much pain in the right knee. She will be seen by physical therapy today for ambulation and range of motion exercises. She is on Eliquis for DVT prophylaxis. She can be discharged home later today. She will follow-up with orthopedics in 2 weeks. Sergio Mtz was seen and examined at bedside this morning. Overall she is doing fairly well. She is not having much pain in the right knee. She has been up and ambulating to the bathroom. She has no complaints.. Review of Systems All systems reviewed & are unremarkable except as noted in HPI & below. Physical Exam On physical examination of the right knee, the dressing is clean and dry. Her leg is out full extension. She has active dorsiflexion plantarflexion of her right ankle.. Results & Data Results & Data Laboratory Results . Diagnostic Findings Postoperative x-rays of the right knee show the prosthesis to be in anatomic alignment without any evidence of fracture complication, or loosening.. PG Care Time/CCT Total # of Minutes Spent Total Time Spent with Patient: Total time spent is greater than 50% in coordination of care (as documented) at patient's floor/unit and/or counseling patient: Coding Level of Care Code 29390 Post Operative Follow-Up Diagnoses Status post right knee replacement Z96.651
--- NOTE | 2023-07-13 08:40 | Discharge Summary ---
Date of Service July 13, 2023 Admission HPI (Per Admitting) Bibi is a pleasant 63-year-old female who is been doing with chronic increasing right knee pain. X-rays and clinical examination have been diagnostic for advanced osteoarthritis of the right knee. After failed conservative treatment, she has elected proceed with a right total knee arthroplasty. I did a left knee replacement on her in April 2023 and she is done very well with that.. Admission Exam (Per Admitting) On physical examination the right knee, she has slight varus deformity. She has range of motion from 5 to 115 degrees. No gross instability. Pain over the distal femoral condyles.. Principal Diagnosis Same as "Discharge Diagnosis" noted below under Discharge Instructions. Discharge Exam On physical examination of the right knee, the dressing is clean and dry. Her leg is out full extension. She has active dorsiflexion plantarflexion of her right ankle.. Discharge Data Procedures Performed Operation Date: 07/12/23 10:00 Actual Procedures p Right Total Knee Arthroplasty(Right) - Cholo Sam DO Ordered Studies 07/12/23 05:00 US - OR guided needle placemen Routine Hospital Course (1) Status post right knee replacement: On July 12, 2023 Bibi arrived at [facility] and underwent a right knee replaced without complication. She had a spinal anesthetic. Postoperatively she was started on Eliquis for DVT prophylaxis and transferred to the general orthopedic floors. Her hospital course was uneventful. On postop day #1, her vital signs were stable and her pain was well controlled. She was able to participate well with physical therapy doing ambulation and range of motion exercises. She was then discharged home. She will follow-up with orthopedics in 2 weeks. PG Care Time/CCT Total # of Minutes Spent Total Time Spent with Patient: Total time spent is greater than 50% in coordination of care (as documented) at patient's floor/unit and/or counseling patient: Discharge Plan Discharge Items Patient Disposition: Home - Home Health Services Reason For Visit: Degenerative Joint Disease Right Knee Discharge Diagnosis: Right knee replacement Activity: Per Instructions section Non-emergency contact: Surgeon Call non-emergency contact if: your wound has increased redness and your wound has increased drainage Follow-up/Referrals: Joseph Grace DO [Primary Care Provider] - Diet: Regular Addtl Attending Provider Instructions: Activity and Therapy Recommendations: * If you are using [facility] then therapy will be provided at your home until they feel you have accomplished all of your goals. * If you are using [facility] then Physical Therapy will be provided until they feel you are ready to start Outpatient Physical Therapy. * If you are not using home therapy then Outpatient Physical Therapy should start about 3-5 days from your day of surgery. Therapy will last about 6-10 weeks * It is important not to put a pillow under your knee when you are relaxing or sleeping. It is just as important to make sure you are getting your knee perfectly straight as it is to regain your knee bend. * You were shown a series of exercises in the hospital. Do these exercises three times each day including the exercises you were shown in physical therapy. * Get up and walk several times each day. For the first four weeks, try not to stand or walk for more than one hour at a time. If you do stand or walk for more than one hour, you will not hurt anything, but your leg will likely swell. * As you feel comfortable, you may change from the walker or crutches to a cane and then to independent walking. Medications: * Narcotic You will likely be sent home from the hospital with a prescription for the narcotic pain medication that worked best throughout your stay. * Cefadroxil -take the antibiotic twice a day for 10 days to help prevent infection. * Eliquis -continue taking your Eliquis as prescribed. * Other medications may be prescribed for specific circumstances. If you have any questions, please call the office at . * Resume previous home medications unless otherwise instructed TEDs/Elastic Stockings: The white elastic stockings help limit swelling and prevent blood clots from forming in your legs.~ The more you wear them, the more they work. Wear them f or six weeks. Dressing Care: The dressing can be changed after physical therapy on postop day #1. Daily dry dressing changes for a few days, especially if the incision is still draining some. If the incision is not draining then you may leave the elvia open to air. If there is a little bit of drainage or if the elvia are getting stuck on your clothing then cover the incision with a dry dressing. The elvia will be removed at your 2 week follow-up appointment. Showering: You may shower 5 days from the day of surgery as long as the incision is no longer draining. You may shower with the elvia exposed. Let soapy water run over the elvia and pat them dry. Do not scrub or soak the incision. Things To Watch For: * Drainage from the incision site that occurs more than one week after your surgery. * Increased redness at the incision site. * Fever above 102 degrees Fahrenheit. * Unusual chest pain or shortness of breath. * Call [facility] at with any of the above problems Follow-Up Visit: Follow-up with Dr. Sam's PA (Cholo Allen) 2-3 weeks after your day of surgery. He will remove your elvia and answer any questions. If you have any additional questions or concerns, Dr Sam is usually in the office at the same time and will be available An appointment was probably scheduled when you signed-up for surgery in the office. If you have any questions call Office Instructions: More detailed instructions as well as Frequently Asked Questions were provided in a folder by our office when you signed-up for surgery. Please review these instructions when you get home. If you have any further questions or concerns, please feel free to call the office at [phone] Pending Studies at Discharge: No Stand-Alone Forms: [facility] Medications and DC Order Prescriptions: New oxycodone 5 mg Tablet 5 mg PO Q4H PRN (Reason: pain) Qty: 30 0RF cefadroxil 500 mg capsule 500 mg PO BID 10 Days Qty: 20 0RF Continued albuterol sulfate 90 mcg/actuation HFA aerosol inhaler 2 puff INH Q6H PRN (Reason: shortness of breath or wheezing) Qty: 54 1RF losartan 100 mg tablet 100 mg PO QAM Qty: 90 3RF venlafaxine 150 mg capsule,extended release 24hr 150 mg PO QAM Qty: 90 0RF bupropion HCl [Wellbutrin XL] 300 mg tablet extended release 24 hr 300 mg PO QAM Qty: 90 0RF albuterol sulfate 2.5 mg /3 mL (0.083 %) solution for nebulization 2.5 mg INH Q4H PRN (Reason: Shortness Of Breath) Patient Comments: has not used for a very long time. amiodarone 200 mg tablet 200 mg PO QAM fexofenadine 180 mg tablet 180 mg PO QAM multivitamin tablet 1 tab PO QAM semaglutide (weight loss) 1 mg/0.5 mL pen injector 2 mg subcut Q7D Patient Comments: Takes Semaglutide Fridays-last dose will be 07/05/23 Eliquis 5 mg Tablet 5 mg PO BID levothyroxine 50 mcg tablet 50 mcg PO QAM montelukast 10 mg tablet 10 mg PO QAM metoprolol succinate 25 mg tablet extended release 24 hr 25 mg PO QAM hydrochlorothiazide 12.5 mg tablet 12.5 mg PO QAM Admission Data Admit Date/Time: 07/12/23 12:12 Attending Provider: Cholo Sam Admit Provider: Cholo Sam Primary Care Provider: Joseph Grace
[2023-07-13] MEDS ORDERED: MULTIVITAMIN TAB PO SCH (09:00)
[2023-07-13] MEDS ORDERED: LOSARTAN POTASSIUM 50 MG TAB PO SCH (09:00)
[2023-07-13] MEDS ORDERED: FEXOFENADINE HCL 180 MG TAB PO SCH (09:00)
[2023-07-13] MEDS ORDERED: METOPROLOL SUCC 25MG EXT REL TAB PO SCH (09:00)
[2023-07-13] MEDS ORDERED: hydroCHLOROthiazide 25 MG TAB PO SCH (09:00)
[2023-07-13] MEDS ORDERED: buPROPion XL 300 MG TABCR PO SCH (09:00)
[2023-07-13] MEDS ORDERED: MONTELUKAST SODIUM 10 MG TABLET PO SCH (09:00)
[2023-07-13] MEDS ORDERED: AMIODARONE 200 MG TAB PO SCH (09:00)
[2023-07-13] MEDS ORDERED: VENLAFAXINE HCL XR 150 MG CAPXR PO SCH (09:00)
[2023-07-13] MEDS ORDERED: APIXABAN 5 MG TABLET PO SCH (09:00)
[2023-07-13] MEDS: DOCUSATE SODIUM 100 MG CAP PO SCH (09:15)
[2023-07-13 13:18] VITALS: BP 114/62
== END 2023-07-13 13:40 | disposition home health service (06) ==
LOC: 3N 08:35 → ASU 08:35
DX: Z91.041 Radiographic dye allergy status; M17.11 Unilateral primary osteoarthritis, right knee; E03.9 Hypothyroidism, unspecified; K21.9 Gastro-esophageal reflux disease without esophagitis; I48.91 Unspecified atrial fibrillation; Z79.890 Hormone replacement therapy; G47.33 Obstructive sleep apnea (adult) (pediatric); I12.9 Hypertensive chronic kidney disease with stage 1 through stage 4 chronic kidney disease, or unspecified chronic kidney disease; J45.909 Unspecified asthma, uncomplicated; Z79.899 Other long term (current) drug therapy; Z79.01 Long term (current) use of anticoagulants; N18.9 Chronic kidney disease, unspecified